=== PATIENT | female | born 1970 | race Caucasian/White ===

== ENCOUNTER 2018-09-08 19:47 | Inpatient (IN) | payer MEDICAID ==
[~2018-09-08] VITALS: Ht 152.4 cm; Wt 72.1 kg
[2018-09-08 19:50] VITALS: BP 131/90
--- NOTE | 2018-09-08 19:50 | NUR ---
47/F BIBA FROM HOME, C/O SUDDEN ONSET CONSTANT SHARP 9/10 DIFFUSE ABD PAIN, X6 HRS S/P COLONOSCOPY AT [facility]. PT WAS GIVEN PREHOSPITAL 50MCG FENTANYL AND 4MG ZOFRAN, PT WITH IV ON R FA. PT AOX4, GCS 15, IN MODERATE AMOUNT OF PAIN WITH FACIAL GRIMACING, SKIN NORMAL DRY AND INTACT, RR EVEN AND UNLABORED. LUNG SOUNDS CLEAR BL. BS ACTIVE X4, ABD SOFT ROUND TENDER DIFFUSELY HX HTN, COLONOSCOPY (8 HRS AGO) RX LOSARTAN
[2018-09-08] MEDS ORDERED: NACL 0.9% 1,000 ML IV ONE (19:55)
[2018-09-08] MEDS ORDERED: MORPHINE SULFATE 4 MG/ML SYR IVP ONE ×3 (20:10→22:45)
[2018-09-08] MEDS ORDERED: ONDANSETRON 4 MG/2 ML VIAL IVP ONE (20:10)
[2018-09-08 20:13] LABS: BASOPHILS % (AUTO) 0.1 % (0.0-2.0); EOSINOPHILS # (AUTO) 0.1 K/uL (0-0.4); EOSINOPHILS % (AUTO) 0.5 % (0.0-4.0); HEMATOCRIT 34.8 % (36-48); HEMOGLOBIN 11.7 g/dL (12.0-16.0); LYMPHOCYTES # (AUTO) 1.1 K/uL (2.5-16.5); LYMPHOCYTES % (AUTO) 5.8 % (20.5-51.1); MEAN CORPUSCULAR HEMOGLOBIN 33 pg (27-31); MEAN CORPUSCULAR HGB CONC 34 g/dL (33-37); MEAN CORPUSCULAR VOLUME 97.3 fL (80-94); MONOCYTES % (AUTO) 5.4 % (1.7-9.3); NEUTROPHILS # (AUTO) 17.1 K/uL (1.8-7.7); NEUTROPHILS % (AUTO) 88.2 % (42.2-75.2); PLATELET COUNT (AUTO) 316 K/uL (140-450); RED BLOOD CELL COUNT(AUTO) 3.58 MIL/uL (4.20-5.40); WHITE BLOOD COUNT (AUTO) 19.4 K/uL (4.8-10.8)
[2018-09-08 20:23] LABS: ANION GAP 15.6 (8-16); CARBON DIOXIDE 22.2 mmol/L (21-32); CREATININE 1.1 mg/dL (0.6-1.3); POTASSIUM 3.8 mmol/L (3.5-5.1)
[2018-09-08 20:29] LABS: ALBUMIN 3.3 g/dL (3.4-5.0); TOTAL BILIRUBIN 0.7 mg/dL (0.0-1.0)
--- NOTE | 2018-09-08 21:26 | NUR ---
PT C/O PERSISTENT DIFFUSE ABD PAIN DESPITE PAIN MEDS. DR NELSON MADE AWARE. ADMINISTERED SECOND DOSE MORPHINE 4MG IVP WITH EDUCATION, PT VERBALIZED UNDERSTANDING, TOLERATED MED WELL. ALL NEEDS MET AT THIS TIME.
--- NOTE | 2018-09-08 22:05 | NUR ---
PT C/O PERSISTENT DIFFUSE ABD PAIN DESPITE PAIN MEDS. PT DENIES NAUSEA. DR GILL MADE AWARE.
--- NOTE | 2018-09-08 22:40 | NUR ---
DR GILL AT BEDSIDE
[2018-09-08] MEDS ORDERED: diphenhydrAMINE 50 MG/ML VIAL IVP ONE (22:45)
--- NOTE | 2018-09-08 22:45 | NUR ---
MINIMAL INTERVIEW DONE, PT NON COMPLIANT SAID SHE WANTS TO SLEEP FOR NOW, AND DON'T WANT TO BE INTERVIEWED, SHE SAID SHE ALREADY ANSWERED QUESTIONS AT THE ER. Addendum: 09/09/18 at 0203 by Tiara Gutierrez RN AMEND TO [id number]- TIME OF INTERVIEW
--- NOTE | 2018-09-08 23:04 | NUR ---
DR GILL AT BEDSIDE. PT GIVEN MORPHINE 4MG IVP AND BENADRYL 25MG IVP WITH EDUCATION, PT REPORTS IMPROVEMENT IN RELIEF SHORTLY AFTER MED. ALL NEEDS MET AT THIS TIME.
[2018-09-08] MEDS ORDERED: LOSA50TA66 PO (23:16)
[2018-09-08] MEDS ORDERED: BUPR300T70 PO (23:16)
--- NOTE | 2018-09-08 23:28 | NUR ---
Patient will be admitted to care of DR. KWON. Admited to [facility]. Will go to [id number]. Belongings list completed. Report to BELEN GONG.
--- NOTE | 2018-09-08 23:30 | NUR ---
RECIEVED PT FROM ER VIA WHEELCHAIR. PT A, A , O X 4. CAME IN WITH , PT ABLE TO AMBULATE FROM W/C TO BED. PT IS PAIN VERBALIZED PER ER NURSE AT 2250 HAD PAIN MEDS AT THE ER, HIGH DOSE. PT INFORMED FREQUENCY OF PAIN MEDS. ABLE TO VERBALIZE UNDERSTANDING. ASSESSED BY DOCTOR, BUT PT REQUESTED TO SLEEP FOR NOW SINCE SHE HAS GOT A COLONOSCOPY THIS AM AT [facility]. BED ALARM NEAR BEDSIDE . WILL CONTINUE TO MONITOR.
--- NOTE | 2018-09-08 23:45 | NUR ---
DR. NICHOLAS CORDOVAED PER CHARGE NURSE TO DRINK WATER PER REQUEST.
[2018-09-09] VITALS: BP 124/80
[2018-09-09] MEDS ORDERED: NACL 0.9% 1,000 ML IV SCH (00:12)
[2018-09-09] MEDS ORDERED: LORazepam 2 MG/ML VIAL IM/IVP PRN (00:15)
[2018-09-09] MEDS ORDERED: MORPHINE SULFATE 2 MG/ML SYR IVP PRN (00:15)
[2018-09-09] MEDS ORDERED: ACETAMINOPHEN 325 MG TAB PO PRN (00:15)
[2018-09-09] MEDS ORDERED: DOCUSATE SODIUM 100 MG GELCAP PO PRN (00:15)
[2018-09-09] MEDS ORDERED: ZOLPIDEM 5 MG TAB PO PRN (00:15)
[2018-09-09] MEDS ORDERED: HYDROcodone/APAP 5/325 MG 1 TAB TAB PO PRN (00:15)
[2018-09-09] MEDS ORDERED: ONDANSETRON 4 MG/2 ML VIAL IM/IVP PRN (00:15)
[2018-09-09] MEDS ORDERED: HYDROmorphone 1 MG/ML AMP IVP PRN ×2 (00:35→08:15)
[2018-09-09 00:52] LABS: PROTHROMBIN TIME 9.1 secs (10.8-13.4)
[2018-09-09] MEDS ORDERED: DICYCLOMINE HCL LIQUID 20 MG, ALUMINUM HYD/MAG/SIMETHICONE 30 ML, LIDOCAINE VISCOUS 2% ... PO SCH ×3 (01:00)
--- NOTE | 2018-09-09 01:00 | NUR ---
PT DON'T WANT TO BE DISTURBED, WILL ADMINISTER GI COCKTAIL SOON PT WAKES UP. DR. NICHOLAS LEONG
[2018-09-09 01:03] LABS: MAGNESIUM 2.4 mg/dL (1.8-2.4); PHOSPHORUS 4.3 mg/dL (2.5-4.9); THYROID STIMULATING HORMONE 1.02 uIU/mL (0.34-3.74)
[2018-09-09] MEDS: DEXT 5% /NACL 0.9% 1,000 ML IV SCH ×2 (01:26→16:36)
--- NOTE | 2018-09-09 01:45 | NUR ---
REMINDED PT NO SMOKING INSIDE THE ROOM. PT SLEEPY WILL REITERATE LATER
[2018-09-09] MEDS: KETOROLAC 15 MG/ML VIAL IM PRN ×2 (02:46→06:37)
--- NOTE | 2018-09-09 02:55 | NUR ---
PT AWAKENED, ADMINISTERED GI COKTAIL- PLEASE NOTE, DOSE ADMINISTERED: MAG-AL PLUS 30 ML( MG HYDROXIDE 1200 MG, AL HYDROXIDE 1200 MG, SIMETHICONE 120 MG) AND BENTYL 10 MG/5 ML; LIDOCAINE 2% /20 ML (AND NOT 1 MG STATED IN THE MEDITECH)
--- NOTE | 2018-09-09 04:44 | NUR ---
PT REFUSED TO BE TAKEN VITALS, SHE SAID SHE WANTS TO SLEEP AND DON'T WANT TO BE DISTURBED
[2018-09-09] MEDS: metroNIDAZOLE 500 MG/NS PREMIX 100 ML IV SCH ×2 (04:58→13:38)
--- NOTE | 2018-09-09 06:38 | NUR ---
DR. BURNETTE SEEN PT PT C/O 02/[address] BURNETTE SAID TO GO AHEAD AND GIVE THE TORADOL
[2018-09-09 06:41] LABS: BASOPHILS % (AUTO) 0.1 % (0.0-2.0); EOSINOPHILS # (AUTO) 0.1 K/uL (0-0.4); EOSINOPHILS % (AUTO) 0.5 % (0.0-4.0); HEMATOCRIT 35.2 % (36-48); HEMOGLOBIN 11.7 g/dL (12.0-16.0); LYMPHOCYTES # (AUTO) 1.1 K/uL (2.5-16.5); LYMPHOCYTES % (AUTO) 5.7 % (20.5-51.1); MEAN CORPUSCULAR HEMOGLOBIN 33 pg (27-31); MEAN CORPUSCULAR HGB CONC 33 g/dL (33-37); MONOCYTES # (AUTO) 0.7 K/uL (0.8-1.0); MONOCYTES % (AUTO) 3.7 % (1.7-9.3); NEUTROPHILS # (AUTO) 16.6 K/uL (1.8-7.7); PLATELET COUNT (AUTO) 305 K/uL (140-450); RED BLOOD CELL COUNT(AUTO) 3.56 MIL/uL (4.20-5.40); WHITE BLOOD COUNT (AUTO) 18.5 K/uL (4.8-10.8)
[2018-09-09 06:45] VITALS: BP 118/84
[2018-09-09 06:54] LABS: CARBON DIOXIDE 25.8 mmol/L (21-32); POTASSIUM 3.8 mmol/L (3.5-5.1)
[2018-09-09 07:05] LABS: CHOL/HDL RATIO 3.3 (1-4.5)
--- NOTE | 2018-09-09 07:05 | NUR ---
RECEIVED BEDSIDE REPORT FROM BELEN GONG. PT STABLE, AWAKE, ALERT AND ORIENTED X4. NO SIGNS OF DISTRESS NOTED. NO REDNESS, SWELLING, OR INFLAMMATION NOTED ON IV SITE. DENIES SOB. CALL PORTER WITHIN REACH. BED IN LOWEST POSITION. SAFETY MEASURES IN PLACE. PLAN OF CARE REVIEWED.
--- NOTE | 2018-09-09 07:35 | NUR ---
RECEIVED CALL FROM LAB TO STOP A DUPLICATE ORDER OF BLOOD CULTURE ORDERED.
[2018-09-09 08:00] VITALS: BP 114/81
--- NOTE | 2018-09-09 08:34 | NUR ---
ADMINISTERED SCHEDULED MEDICATIONS AND PRN DILAUDID FOR 10/10 ABDOMINAL PAIN. PT TOLERATED WELL. AT BEDSIDE.
[2018-09-09] MEDS ORDERED: HYDROmorphone PFS 2 MG/ML SYR IVP PRN (08:40)
[2018-09-09] MEDS ORDERED: LOSARTAN 50 MG TAB PO SCH (09:00)
[2018-09-09] MEDS ORDERED: NON-FORMULARY ITEM (Bupropion HCl* (Wellbutrin Xl*) 300 MG) PO SCH (09:00)
[2018-09-09] MEDS ORDERED: NICOTINE TRANSD SYS 21 MG/24 HR PATCH TD SCH (09:00)
[2018-09-09] MEDS ORDERED: buPROPion 150 MG TABER PO SCH (09:00)
[2018-09-09] MEDS ORDERED: LACTOBACILLUS RHAMNOSUS GG 1 EACH CAP PO SCH (09:00)
[2018-09-09 09:24] LABS: APPEARANCE,URINE CLEAR (CLEAR); BILIRUBIN,URINE NEGATIVE (NEGATIVE); BLOOD, URINE NEGATIVE (NEGATIVE); COLOR,URINE YELLOW (YELLOW); LEUKOCYTE ESTERASE ,URINE NEGATIVE (NEGATIVE); NITRITE, URINE NEGATIVE (NEGATIVE); UGLUCOSE NEGATIVE (NEGATIVE)
[2018-09-09 09:51] LABS: CANNABINOID, URINE NEGATIVE ng/mL (NEG <=50); PHENCYCLIDINE SCREEN,URINE NEGATIVE ng/mL (NEG <=25)
[2018-09-09 09:52] LABS: BARBITURATE, URINE NEGATIVE ng/ml (NEG <=200); BENZODIAZEPINE, URINE POSITIVE ng/mL (NEG <=200); COCAINE, URINE NEGATIVE ng/mL (NEG <=300); OPIATE, URINE POSITIVE ng/mL (NEG <=2000)
--- NOTE | 2018-09-09 10:20 | NUR ---
PT STABLE, WATCHING T.V. NO NEEDS AT THIS TIME.
[2018-09-09] MEDS ORDERED: LEVOFLOXACIN 750 MG/D5W PREMIX 150 ML IV SCH (11:00)
[2018-09-09] MEDS: HYDROmorphone PFS 2 MG/ML SYR IVP PRN ×2 (11:37→15:47)
--- NOTE | 2018-09-09 11:55 | NUR ---
ADMINISTERED SCHEDULED MEDICATION, PT TOLERATED WELL. NO NEEDS AT THIS TIME.
[2018-09-09 12:00] VITALS: BP 118/81
--- NOTE | 2018-09-09 13:08 | NUR ---
ADMINISTERED PRN ZOFRAN FOR C/O NAUSEA. FAMILY AT BEDSIDE. PT TOLERATED WELL.
--- NOTE | 2018-09-09 13:41 | NUR ---
ADMINISTERED SCHEDULED MEDICATION, PT TOLERATED WELL. NO OTHER NEEDS AT THIS TIME. FAMILY AT BEDSIDE.
--- NOTE | 2018-09-09 14:55 | NUR ---
PAGED DR BURNETTE.
--- NOTE | 2018-09-09 15:50 | NUR ---
PT REFUSED TO RECEIVE FULL DOSE OF PRN DILAUDID. ADMINISTERED PRN DILAUDID 1MG FOR 6/10 ABDOMINAL PAIN. PT TOLERATED WELL. AT BEDSIDE. MEDICATION WASTED WITH AGRICULTURAL SERVICE TECHNICIAN MAMI.
[2018-09-09 16:00] VITALS: BP 130/92
[2018-09-09] MEDS ORDERED: METOCLOPRAMIDE 10 MG/2 ML INJ VIAL IVP PRN (16:10)
--- NOTE | 2018-09-09 16:11 | NUR ---
PT TOOK OF TELE MONITOR. PT REFUSED TO HAVE TELE MONITOR PUT BACK. WILL CONTINUE TO MONITOR.
--- NOTE | 2018-09-09 16:21 | NUR ---
ADMINISTERED ONE TIME DOSE OF REGLAN FOR C/O NAUSEA PER MD ORDER. PT TOLERATED WELL.
--- NOTE | 2018-09-09 16:55 | NUR ---
PT DECIDED TO LEAVE AMA. PT STATED "I AM IN EXTREME PAIN AFTER THE COLONOSCOPY". DR NÚÑEZ AT THE BEDSIDE, INSTRUCTED PT REGARDING CONSEQUENCES OF LEAVING AGAINST MEDICAL ADVICE AND ANSWERED QUESTIONS REGARDING PLAN OF CARE. DR NÚÑEZ ENCOURAGED PT TO STAY TO BE MONITORED. PT AND FAMILY REFUSED. PT SIGNED AMA FORM. D/C IV, CATHETER TIP INTACT, BLEEDING CONTROLLED. PT STABLE, AMBULATED FROM THE BED TO THE WHEELCHAIR WITH STEADY GAIT. PT ESCORTED BY TO THE LOBBY BY WHEELCHAIR. Addendum: 09/09/18 at 1936 by Kosta Sousa RN PT AND FAMILY TOOK ALL BELONGINGS HOME.
[2018-09-10 08:31] LABS: FOLIC ACID 8.8 ng/mL (>3.0)
== END 2018-09-09 16:55 | disposition left against medical advice (07) | DRG 249 ==
LOC: MED 19:47 → MTU 23:02
PROVIDERS: ADMIT General Practice; ATTEND General Practice
DX: K52.9 Noninfective gastroenteritis and colitis, unspecified (principal); E44.0 Moderate protein-calorie malnutrition; E83.51 Hypocalcemia; D53.1 Other megaloblastic anemias, not elsewhere classified; D53.9 Nutritional anemia, unspecified; D72.829 Elevated white blood cell count, unspecified; I10 Essential (primary) hypertension; F17.210 Nicotine dependence, cigarettes, uncomplicated; E66.9 Obesity, unspecified; F43.9 Reaction to severe stress, unspecified; M51.37 Other intervertebral disc degeneration, lumbosacral region; F10.20 Alcohol dependence, uncomplicated; Z53.21 Procedure and treatment not carried out due to patient leaving prior to being seen by health care provider; F32.9 Major depressive disorder, single episode, unspecified; Z68.31 Body mass index [BMI] 31.0-31.9, adult; Z79.899 Other long term (current) drug therapy; Y90.9 Presence of alcohol in blood, level not specified
CPT/HCPCS: 36415; 71045; 74018; 80048; 80053; 80305; 81003; 82150; 82607; 82728; 82746; 82977; 83036; 83540; 83690; 83735; 84100; 84134; 84443; 85025; 85045; 85610; 85730; 87040; 87081; 87086; 96374; 96375; 96376; 99285; J1170; J1200; J1885; J1956; J2270; J2405; J2765; J3490; J7042; Q0092